=== PATIENT | female | born 1960 | race Caucasian/White ===

== ENCOUNTER 2018-12-05 08:12 | Inpatient (IN) | payer BC ==
--- NOTE | 2018-11-23 12:37 | HP ---
AMENDED REPORT NOW INCLUDES COSIGNER DESIGNATION HISTORY AND PHYSICAL: DATE OF SURGERY: 12/05/18 DATE OF OFFICE VISIT: 11/22/18 SURGEON: Vonda Hayes MD.* (DICTATED BY HIRAL GRIFFITH) PROCEDURE: Left total hip arthroplasty. CHIEF COMPLAINT: Left hip pain. HISTORY OF PRESENT ILLNESS: Ms. Brice is a 58-year-old female with continued complaints of left hip pain. She has failed conservative treatment and elected to proceed with a left total hip arthroplasty. PAST MEDICAL HISTORY: Osteoporosis. PAST SURGICAL HISTORY: Hysterectomy and right carpal tunnel release. CURRENT MEDICATIONS: 1. Calcium. 2. Vitamin D. 3. Intrarosa. 4. Alendronate sodium weekly. 5. Ibuprofen as needed. ALLERGIES: No known drug allergies. FAMILY HISTORY: Seizures. SOCIAL HISTORY: She is a 58-year-old female. She lives with her . She does not smoke, use drugs, or alcohol. REVIEW OF SYSTEMS: A complete 14-point review of systems was reviewed with the patient, was all negative and noncontributory. She denies history of DVT, PE, hepatitis, HIV, or anesthesia problems. PHYSICAL EXAMINATION GENERAL: She is well developed, well nourished, in no acute distress. VITAL SIGNS: She stands 5 feet 4 inches tall, weighs 111 pounds. Her blood pressure is 120/76, her heart rate is 70. HEENT: Normocephalic, atraumatic. NECK: Supple. No palpable lymph nodes. PULMONARY: The lungs are clear to auscultation bilaterally. CARDIO: Regular rate and rhythm. Strong S1, S2. ABDOMEN: Soft, nontender, nondistended. NEUROLOGICAL: She is alert and oriented x3. MUSCULOSKELETAL: Left lower extremity, the skin is intact. There are no open wounds or abrasions. She walks with an antalgic-type gait favoring the left hip. She has decreased internal and external rotation of the left hip. She has 2+ dorsalis pedis pulse. Her lower extremity muscle groups strength is intact at 5/5 and she has intact sensation. ASSESSMENT AND PLAN: Ms. Brice is a 58-year-old female with continued complaints of left hip pain secondary to endstage osteoarthritis. She has failed conservative treatment, she has elected to proceed with a left total hip arthroplasty with Dr. Hayes. The surgery is scheduled for 12/05/18. Dr. Hayes discussed the risks and benefits of the surgery at today's visit and all of her questions were answered. She will follow up with Dr. Hayes 2 weeks after the surgery. HIRAL GRIFFITH [id number]/[facility] #: [id number] JEANNA
[~2018-12-05 08:12] MED LIST: Buffered Lidocaine 1% SYRIN* 1 ML/SYRINGE INTRADERM ONE; Famotidine IV* 10 MG/ML 2 ML (20 mg) IV ONE; Lactated Ringers 1000 ML Bag* 1,000 ML IV SCH
--- OUTSIDE RECORDS SUMMARY | 2018-12-05 08:14 | XMS REPORT | Continuity of Care Document ---
:1960 External Reference #:[id number] Author Name Noemy Marinelli Care Team Providers Name Role Phone Uvaldo Cooper MD Primary Care Physician Unavailable Payers Date Identification Numbers Payment Provider Subscriber Policy Number: [id number] [place] Soraya Brice PayID: [id number] [address] [address] [place] [address] Advance Directives Description No Information Available Problems Date Description Provider Status Onset: 09/18/2018 Localized, primary osteoarthritis of the Vonda Yaw Hayes Active pelvic region and thigh Family History Date Family Member(s) Observation Comments General No Current Problems Social History Type Date Description Comments Sex Unknown Lives With Spouse ETOH Use Denies alcohol use Tobacco Use Start: Unknown Patient has never smoked Smoking Status Reviewed: 11/22/18 Patient has never smoked Exercise Type/Frequency Exercises regularly Allergies, Adverse Reactions, Alerts Description No Known Drug Allergies Medications Medication Date Status Form Strength Qnty SIG Indications Ordering Provider Calcium 600 Active Unknown 00 Vitamin D Active Tablets 2000Unit 1 by Unknown 00 mouth every day Intrarosa Active Insert 6.5mg Unknown 00 Alendronate Active Unknown Sodium 00 Ibuprofen Active Unknown 00 Immunizations Description No Information Available Vital Signs Date Vital Result Comment 11/22/2018 10:33am Height 64.5 inches 5'4.50" Weight 111.00 lb Heart Rate 70 /min BP Systolic 120 mmHg BP Diastolic 76 mmHg Respiratory Rate 12 /min Body Temperature 98.2 F Pain Level 1 BMI (Body Mass Index) 18.8 kg/m2 09/18/2018 10:51am Height 64.5 inches 5'4.50" Weight 115.00 lb Heart Rate 60 /min BP Systolic 116 mmHg BP Diastolic 80 mmHg BMI (Body Mass Index) 19.4 kg/m2 Results Description No Information Available Procedures Description No Information Available Encounters Type Date Location Provider Dx Diagnosis Office Visit 09/18/2018 [facility] Hayes M25.552 [facility]12 Unilateral primary osteoarthritis, left hip Plan of Treatment Future Appointment(s):12/18/2018 1:15 pm - Vonda Hayes M.D. at [facility].12/05/2018 10:30 am - Keenan Benjamin PA-C at [facility].12/05/2018 10:30 am - HIRAL Kang at [facility].12/05/2018 10:30 am - Vonda Hayes M.D. at [facility]11/22/2018 - Vonda Hayes M.D.M25.552 Pain in left hipFollow up:Follow up: 2 weeks after ibdvotwU34.12 Unilateral primary osteoarthritis, left hip
--- OUTSIDE RECORDS SUMMARY | 2018-12-05 08:14 | XMS REPORT | Continuity of Care Document ---
:1960 External Reference #:[id number] Author Name Uvaldo Cooper M.D. 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 Payers Type Date Identification Numbers Payment Provider Subscriber Effective: Policy Number: [id number] [employer] Myrna Brice 2018 PayID: [id number] [address] [address] [place] [address] Expires: 2012 Policy Number: [id number] BC/BS [place] Myrna Posey Brice Group Number: [id number] [place] [address] Effective: 2012 Policy Number: BCBS [employer] Myrna Posey Brice [id number] Expires: 2018 PayID: [id number] [address] [address] [place] [address] Advance Directives Description No Information Available Problems Date Description Provider Status Onset: 02/06/2015 Atopic dermatitis Uvaldo Cooper M.D. Active Onset: 02/06/2015 Menopausal and postmenopausal Uvaldo Cooper M.D. Active disorders Family History Description No Information Available Social History Type Date Description Comments Sex Unknown Tobacco Use Start: Unknown Patient has never smoked Smoking Status Reviewed: 10/20/17 Patient has never smoked Allergies, Adverse Reactions, Alerts Date Description Reaction Status Severity Comments 06/28/2012 NKDA Active 02/06/2015 Environmental Active Medications Medication Date Status Form Strength Qnty SIG Indications Ordering Provider Fosamax Plus Active Tablets 70-5600mg-U 12tabs 1 tab by M81.0 Germán Cooper 019 nit mouth Uvaldo Steele, every week M.DAjit Calcium + D3 Active Tablets 600-800mg-U 90tabs 1 by mouth E55.9 Kenneth, 019 nit every day Uvaldo Steele M.D. Splint Wrist Active Misc 2units use as G56.01 Kenneth, Brace/Left-Ri 016 directed Uvaldo Steele, ght/Reversibl Yaw e M79.642 Ibuprofen 03/02/2016 Active Tablets 800mg 90tabs 1 by M79.642 Kenneth, mouth Uvaldo Steele, three M.D. times a day as needed Benzonatate 01/10/2017 - Hx Capsules 200mg 30caps tab one R05 Kenneth, 01/21/2017 by mouth Uvaldo Steele, three M.D. times a day Ciprofloxacin 01/10/2017 - Hx Tablets 500mg 20tabs tab one J20.9 Kenneth, HCL 01/21/2017 by mouth Uvaldo Steele, twice a M.D. day No Active 02/06/2015 - Hx Unknown Medications 02/06/2015 Amoxicillin 02/06/2015 - Hx Tablets 500mg 30tabs 1 by 461.8 Kenneth, 02/16/2015 mouth Uvaldo Steele, three M.D. times a day 466.0 382.9 Nexium 06/13/2012 - Hx Capsules DR 40mg 14caps 1 by mouth 789.01 Uvaldo Cooper 02/06/2015 every day Yaw Steele Immunizations Description No Information Available Vital Signs Date Vital Result Comment 11/16/2018 10:41am BP Systolic 118 mmHg BP Diastolic 68 mmHg Height 65 inches 5'5" Weight 112.00 lb BMI (Body Mass Index) 18.6 kg/m2 Heart Rate 66 /min Respiratory Rate 16 /min 10/20/2017 10:17am BP Systolic 110 mmHg BP Diastolic 60 mmHg Height 65 inches 5'5" Weight 118.00 lb BMI (Body Mass Index) 19.6 kg/m2 Heart Rate 70 /min Respiratory Rate 18 /min 01/10/2017 4:30pm BP Systolic 130 mmHg BP Diastolic 72 mmHg Height 65 inches 5'5" Weight 116.00 lb BMI (Body Mass Index) 19.3 kg/m2 Heart Rate 55 /min Body Temperature 97.0 F Respiratory Rate 18 /min 03/30/2016 10:55am BP Systolic 118 mmHg BP Diastolic 76 mmHg Height 65 inches 5'5" Weight 116.00 lb BMI (Body Mass Index) 19.3 kg/m2 Heart Rate 78 /min Respiratory Rate 19 /min 03/02/2016 3:23pm BP Systolic 116 mmHg BP Diastolic 74 mmHg Height 65 inches 5'5" Weight 117.00 lb BMI (Body Mass Index) 19.5 kg/m2 Heart Rate 60 /min Respiratory Rate 16 /min 02/06/2015 9:04am BP Systolic 122 mmHg BP Diastolic 80 mmHg Height 65 inches 5'5" Weight 118.00 lb BMI (Body Mass Index) 19.6 kg/m2 Heart Rate 76 /min Body Temperature 97.4 F Respiratory Rate 16 /min 06/28/2012 3:22pm BP Systolic 105 mmHg BP Diastolic 71 mmHg Height 65 inches 5'5" Weight 122.00 lb BMI (Body Mass Index) 20.3 kg/m2 Heart Rate 67 /min Last Menstrual Period 0 Respiratory Rate 15 /min 06/13/2012 3:22pm BP Systolic 122 mmHg BP Diastolic 70 mmHg Height 65 inches 5'5" Weight 122.00 lb BMI (Body Mass Index) 20.3 kg/m2 Heart Rate 68 /min Respiratory Rate 20 /min Results Test Date Facility Test Result H/L Range Note Type And Screen 10/24/2018 [facility] Patient Blood Type B POS N 1 Antibody Screen Negative N Negative CBC 10/20/2018 [facility] White Blood Count 4.1 K/uL N 3.1-10.7 2 Red Blood Count 4.31 M/uL N 3.90-5.40 Hemoglobin 13.3 gm/dL N 11.6-15.8 Hematocrit 38.3 % N 36.0-46.1 Mean Cell Volume 88.9 fl N 80.9-99.0 Mean Corpuscular HGB 30.9 pg N 25.9-32.7 Mean Corpuscular HGB Conc 34.7 g/dL High 30.8-34.3 Platelet Count 267 K/uL N 155-360 Red Cell Distri Width %CV 12.0 % N 11.7-14.4 Mean Platelet Volume 8.6 fL Low 8.9-12.4 Ua RFX Micro & Culture II 10/20/2018 [facility] Urine Color STRAW Yellow Urine Clarity CLEAR Clear Urine Glucose - Dipstick NEGATIVE mg/dL Negative Urine Bilirubin - Dipstick NEGATIVE Negative Urine Ketone NEGATIVE mg/dL Negative Urine Specific [place] <=1.005 Low 1.010-1.030 Urine Blood NEGATIVE Negative Urine PH 7.0 N 6.5-7.5 Urine Protein - Dipstick NEGATIVE mg/dL Negative Urine Urobilinogen - Dipstick 0.2 E.U./dL N 0.2-1.0 Urine Nitrite - Dipstick NEGATIVE Negative Urine Leuk Esterase NEGATIVE Negative Source: URINE, CLEAN CAT <SEE NOTE> 3 Basic Metabolic Panel 10/20/2018 [facility] Glucose 79 mg/dL N 74-106 BUN 18 mg/dL N 7-18 Creatinine 0.7 mg/dL N 0.6-1.3 Glom Filtration Rate, Estimate >60 mL/min >60 If >60 mL/min >60 4 BUN/Creat 25.7 ratio Sodium 141 mmol/L N 136-145 Potassium 3.9 mmol/L N 3.5-5.1 Chloride 106 mmol/L N 98-107 Carbon Dioxide 29 mmol/L N 21-32 Anion Gap 6 mEq/L Low 8-16 Calcium 9.1 mg/dL N 8.5-10.1 1 CYSTOCELE,LATERAL;INCOMPLETE UTERO-VAGINAL PROLAPS 2 8:00 [facility] [place] 10/24/18 [id number] 3 URINE, CLEAN CATCH 4 Note: Persistent reduction for 3 months or more in an eGFR <60 mL/min/1.73 m2 defines CKD. Patients with eGFR values >/=60 mL/min/1.73 m2 may also have CKD if evidence of persistent proteinuria is present. The original MDRD equation for estimated GFR is not valid for patients less than 18 years of age. Additional information may be found at www.kdoqi.org. Procedures Date Code Description Status 11/16/2018 54463 EKG Completed 02/06/2015 58085 Spirometry Completed 02/06/2015 28547 Tympanometry Completed 08/10/2010 19789 Tympanometry Completed 06/30/2010 19339 Spirometry Completed 06/30/2010 15479 Tympanometry Completed Encounters Type Date Location Provider Dx Diagnosis Office Visit 11/16/2018 [facility] Uvaldo Cooper, L20.9 Atopic dermatitis, 10:30a M.D. unspecified J30.9 Allergic rhinitis, unspecified H53.30 Unspecified disorder of binocular vision G56.01 Carpal tunnel syndrome, right upper limb M19.042 Primary osteoarthritis, left hand M25.552 Pain in left hip M16.12 Unilateral primary osteoarthritis, left hip E55.9 Vitamin D deficiency, unspecified M81.0 Age-related osteoporosis w/o current pathological fracture Z00.01 Encounter for general adult medical exam w abnormal findings Z01.818 Encounter for other preprocedural examination Office Visit 10/20/2017 10:00a [place] Brandon Murillo PA R05 Cough J20.9 Acute bronchitis, unspecified M79.642 Pain in left hand L20.9 Atopic dermatitis, unspecified J30.9 Allergic rhinitis, unspecified H53.30 Unspecified disorder of binocular vision G56.01 Carpal tunnel syndrome, right upper limb M19.042 Primary osteoarthritis, left hand R07.1 Chest pain on breathing Office Visit 01/10/2017 4:30p [place] Zane Mau STAKE DRIVER R05 Cough R06.02 Shortness of breath R50.9 Fever, unspecified J20.9 Acute bronchitis, unspecified Office Visit 03/30/2016 11:00a [place] [facility] Uvaldo Cooper, M79.642 Pain in left M.D. hand L20.9 Atopic dermatitis, unspecified J30.9 Allergic rhinitis, unspecified H53.30 Unspecified disorder of binocular vision G56.01 Carpal tunnel syndrome, right upper limb M19.042 Primary osteoarthritis, left hand Office Visit 03/02/2016 3:15p [facility] Uvaldo Cooper, M79.642 Pain in left M.D. hand M71.342 Other bursal cyst, left hand L20.9 Atopic dermatitis, unspecified J30.9 Allergic rhinitis, unspecified H53.30 Unspecified disorder of binocular vision G56.01 Carpal tunnel syndrome, right upper limb Office Visit 02/06/2015 8:30a Uvaldo Stein, 461.8 Sinusitis Acute Other M.D. 466.0 Bronchitis Acute 382.9 Otitis Media Unspec 786.2 Cough 786.05 Shortness Of Breath 478.19 Other Disease Of Nasal Cavity And Sinuses 780.79 Malaise And Fatigue Other 691.8 Dermatitis Atopic & Related Conditions Other Office Visit 06/28/2012 3:00p Joyce Benites STAKE DRIVER 789.01 Pain Abdominal Office Right Upper Quadrant Office Visit 06/13/2012 3:00p Joyce Benites STAKE DRIVER 789.01 Pain Abdominal Office Right Upper Quadrant Office Visit 08/10/2010 12:15p [place] Uvaldo Cooper M.D. 382.9 Otitis Media Office Unspec 786.2 Cough 034.0 Streptococcal Sore Throat 723.1 Cervicalgia Office Visit 06/30/2010 10:15a [place] [facility] Uvaldo Cooper 382.9 Otitis Media Serena.DAjit Unspec 466.0 Bronchitis Acute 786.2 Cough 461.8 Sinusitis Acute Other Plan of Treatment 11/16/2018 - Uvaldo Cooper M.D.L20.9 Atopic dermatitis, unspecifiedComments: SKIN CARE INSTRUCTIONS LOTION OR BABY OIL 2-3 APPLICATION PER DAYUSE MOISTURIZING SOAPAVOID PROLONGED WATER EXPOSUREAVOID USING HOT WATER IN EJHNMHM37.9 Allergic rhinitis, unspecifiedComments:INCREASE PO FLUID USE ANTIHISTAMINE PRN SECOND HAND SMOKING RKIKSFLAXP12.30 Unspecified disorder of binocular visionComments:USE GLASSES/CONTACTSF/U WITH RCYNAKRUOEPMON32.01 Carpal tunnel syndrome, right upper limbComments:WRIST SPLINTEXERCISE/HEAT/ MESSAGE F/U WITH ORTHO PRNM19.042 Primary osteoarthritis, left handComments: TYLENOL OR MOTRIN PRN EXERCISE/HEAT/WZCBKMES78.552 Pain in left hipComments: EXERCISE/HEAT/MESSAGETYLENOL OR MOTRIN PRNAVOID HEAVY ODMLDWAT20.12 Unilateral primary osteoarthritis, left hipComments:EXERCISE/HEAT/MESSAGETYLENOL OR MOTRIN PRNAVOID HEAVY JCOMCDTF97.9 Vitamin D deficiency, unspecifiedNew Medication: Calcium + D3 600-800 mg-Unit - 1 by mouth every dayComments:INCREASE EXPOSURE TO SUNREVIEW OF DIETM81.0 Age-related osteoporosis without current pathological fractuNew Medication:Fosamax Plus D 70-5600 mg-Unit - 1 tab by mouth every weekComments:STRESS EXERCISESCALCIUM SUPPLEMENT VIT D SUPPLEMENTHEALTHY LIVING KFOVWTQDADYP93.01 Encounter for general adult medical examination with abnormal findingsComments:GOOD NUTRITION /EXERCISEDENTAL/ FLOSSING/ SELF CAREDROWNING/ SUN SAFETYSEAT BELT/ DRIVING SAFETYVIOLENCE PREVENTION/ GUN SAFETY "SAFE AT HOME"EDUCATION GOALS/ ACTIVITIESSOCIAL INTERACTIONFAMILY FUNCTIONINGSELF CONTROLDEPRESSION/ ANXIETYYEARLY PHYSICAL WELLNESS EVALUATION F /U WITH OB /ASSISTANT IN NURSING FOR PAP AND ODGRLMZPLT96.818 Encounter for other preprocedural examinationComments:MEDICALLY CLEAREDF/U WITH ORTHO
[2018-12-05] MEDS ORDERED: Famotidine IV* 10 MG/ML 2 ML (20 mg) ONE (08:42)
[2018-12-05] MEDS ORDERED: ceFAZolin 2 GM PREMIX in ORs 2 GM/50 ML BAG IVPB ONE (08:42)
[2018-12-05] MEDS ORDERED: ROPIVACAINE 5 MG/ML 30 ML BTL (0.5%) ONE (09:55)
[2018-12-05] MEDS ORDERED: Midazolam* 1 MG/ML 5 ML VIAL (5 MG) ONE (10:10)
[2018-12-05] MEDS ORDERED: fentaNYL* 50 MCG/ML 2 ML VIAL (100 MCG VIAL) ONE (10:10)
[2018-12-05] MEDS ORDERED: KETAMINE HCL* 50 MG/ML 10 ML VIAL ONE (12:09)
[2018-12-05] MEDS ORDERED: DiMENhydriNATE IV* 50 MG/ML VIAL ONE (12:16)
[2018-12-05] MEDS ORDERED: Dexamethasone IV* 4 MG/ML 1 ML (4 MG) ONE (12:16)
[2018-12-05] MEDS ORDERED: Ketorolac INJ* 30 MG/ML 1 ML VIAL ONE (12:16)
[2018-12-05] MEDS ORDERED: Succinylcholine* 20 MG/ML 10 ML VIAL ONE (12:16)
[2018-12-05] MEDS ORDERED: Ondansetron INJ* 2 MG/ML VIAL ONE (12:16)
[2018-12-05] MEDS ORDERED: EPHEDrine (Pressors)* 50 MG/ML VIAL ONE (12:16)
[2018-12-05] MEDS ORDERED: Propofol* 10 MG/ML 20 ML BTL ONE (12:16)
[2018-12-05] MEDS ORDERED: Lidocaine 2% PF * 5 ML VIAL ONE (12:17)
[2018-12-05] MEDS ORDERED: Phenylephrine IV* 40 MCG/ML 10 ML SYRINGE ONE (12:17)
[2018-12-05] MEDS ORDERED: Acetaminophen IV 1GM/100ML * 1,000 MG/100 ML VIAL IVPB ONE (13:00)
[2018-12-05] MEDS ORDERED: DiMENhydriNATE IV* 50 MG/ML VIAL IV PUSH PRN (13:00)
[2018-12-05] MEDS ORDERED: oxyCODONE TAB* 5 MG TAB PO PRN ×2 (13:00→14:05)
[2018-12-05] MEDS ORDERED: Naloxone* 0.4 MG/ML 1 ML VIAL IV PRN (13:00)
[2018-12-05] MEDS ORDERED: Gabapentin CAP(*) 100 MG PO ONE (13:02)
[2018-12-05] MEDS ORDERED: HYDROmorphone INJ1* 1 MG/ML SYRINGE ONE ×2 (13:18→14:25)
[2018-12-05] MEDS ORDERED: Ondansetron TAB* 4 MG PO PRN (14:05)
[2018-12-05] MEDS ORDERED: traMADol TAB* 50 MG PO PRN (14:05)
[2018-12-05] MEDS ORDERED: Bisacodyl SUPP* 10 MG SUPP PR PRN (14:05)
[2018-12-05] MEDS ORDERED: Polyethylene Glycol 3350* 17 GM PACKET PO PRN (14:05)
[2018-12-05] MEDS ORDERED: Cyclobenzaprine TAB* 10 MG PO PRN (14:05)
[2018-12-05] MEDS ORDERED: Magnesium Hydroxide LIQ* 30 ML UDC PO PRN (14:05)
[2018-12-05] MEDS ORDERED: Ondansetron INJ* 2 MG/ML VIAL IV PRN (14:05)
[2018-12-05] MEDS ORDERED: Morphine VIAL* 4 MG/ML VIAL (1 ml vial) IV PRN (14:05)
[2018-12-05] MEDS ORDERED: diPHENhydraMINE IV* 50 MG/ML 1 ml VIAL (BENADRYL) IV PRN (14:05)
[2018-12-05] MEDS ORDERED: Acetaminophen IV 1GM/100ML * 100 ML ONE (14:08)
[2018-12-05] MEDS ORDERED: Gabapentin CAP(*) 100 MG ONE (14:08)
[2018-12-05] MEDS ORDERED: oxyCODONE TAB* 5 MG TAB ONE (14:25)
[2018-12-05] MEDS: HYDROmorphone INJ1* 1 MG/ML SYRINGE IV PRN ×2 (14:29→14:54)
--- NOTE | 2018-12-05 14:44 | PN ---
Progress Note - Progress Note Date of Service: 12/05/18 Note: resting comfortably in recovery. no complaints of pain. able to dorsi flex/ plantar flex, 2+ DP pulse, intact sensation, dressing c/d/i and abduction pillow in place.
[2018-12-05] MEDS: Lactated Ringers 1000 ML Bag* 1,000 ML IV SCH (16:55)
[2018-12-05] MEDS: oxyCODONE/Acetamin 5/325 MG* TAB PO PRN (18:30)
[2018-12-05] MEDS: ceFAZolin 1 GM ADVAN(*) 1 GM in NS 0.9% 50 ML* 50 ML IVPB SCH (20:18)
[2018-12-05] MEDS: Docusate CAP* 100 MG PO SCH (21:26)
[2018-12-05] MEDS: Magnesium Hydroxide LIQ* 30 ML UDC PO SCH (21:26)
[2018-12-05] MEDS: Acetaminophen TAB* 325 MG PO SCH (21:26)
[2018-12-06] MEDS: oxyCODONE/Acetamin 5/325 MG* TAB PO PRN ×6 (03:14→23:59)
[2018-12-06] MEDS: Lactated Ringers 1000 ML Bag* 1,000 ML IV SCH ×2 (03:14→21:31)
[2018-12-06] MEDS: ceFAZolin 1 GM ADVAN(*) 1 GM in NS 0.9% 50 ML* 50 ML IVPB SCH ×2 (03:15→11:33)
[2018-12-06] MEDS: Acetaminophen TAB* 325 MG PO SCH ×3 (05:33→22:10)
[2018-12-06 06:50] LABS: Hematocrit 25 % (35-47); Hemoglobin 8.6 g/dl (12.0-16.0); Mean Platelet Volume 6.7 fL (7.4-10.4); Platelet Count 186 10^3/ul (150-450)
[2018-12-06 07:11] LABS: BUN/Creatinine Ratio 18.9 (8-20); Calcium 8.4 mg/dL (8.6-10.3); EGFR African American 142.4 (>60); EGFR Non-African American 117.7 (>60); Potassium 3.8 mmol/L (3.5-5.0)
[2018-12-06] MEDS: Apixaban* 2.5 MG TAB PO SCH ×2 (07:38→19:50)
[2018-12-06] MEDS: Docusate CAP* 100 MG PO SCH ×2 (07:38→19:50)
[2018-12-06] MEDS: Magnesium Hydroxide LIQ* 30 ML UDC PO SCH ×2 (07:39→22:09)
[2018-12-06] MEDS ORDERED: Lactated Ringers 1000 ML Bag* 1,000 ML IV SCH (09:00)
--- NOTE | 2018-12-06 10:03 | OP ---
DATE OF OPERATION: 12/05/18 - ROOM #342 DATE OF : 56 ATTENDING SURGEON: Vonda Hayes MD MANAGER COSMETIC: HIRAL [place]. Ms. Ernst did help throughout the procedure with preparation of the leg, wound retraction, manipulation of the hip and wound closure. ANESTHESIOLOGIST: Dr. Gottlieb. ANESTHESIA: General. PRE-OP DIAGNOSIS: Severe end-stage degenerative osteoarthritis of the left hip joint. POST-OP DIAGNOSIS: Severe end-stage degenerative osteoarthritis of the left hip joint. OPERATIVE PROCEDURE: Left total hip arthroplasty. ESTIMATED BLOOD LOSS: 150 cc. COMPLICATIONS: None. SPECIMEN: Femoral head and acetabular reaming sent to Pathology. HARDWARE USED: This is total hip arthroplasty hardware from [employer]. For the cup, a Tritanium cluster hole shell 50D, two 16 mm screws. For the liner, a Trident X3 10-degree polyethylene insert 32D. For the stem, an Accolade II size 5 with a 132- degree neck. For the head, a Biolox delta ceramic V40 femoral head 32 -4. BRIEF HISTORY/INDICATION: Ms. Brice is a 58-year-old female with years of increasingly severe left hip pain. Radiograph showed severe arthritis. She failed conservative treatment and elected to undergo left total hip arthroplasty due to continued pain and decreased quality of life. Informed consent was obtained from the patient. She understood the risks of surgery included, but were not limited to bleeding, infection, damage to nearby structures, continued pain, need for further surgery, intraoperative fracture, nerve palsy, hardware failure or loosening, dislocation, leg length discrepancy , stroke, heart attack, blood clot, and . She wished to proceed. INTRAOPERATIVE FINDINGS: Intraoperatively, the patient was noted to have severe arthritis with complete loss of cartilage along the femoral head and acetabulum. The acetabulum was extremely dysplastic and shallow with minimal anterior wall. DESCRIPTION OF PROCEDURE: Ms. Brice was identified in the preanesthesia unit. Her left lower extremity was marked as the correct operative site. Informed consent was signed and placed in the chart. The patient was taken to the operating room and placed under general anesthesia. A Deshpande catheter was placed. The patient was placed in the right lateral decubitus position on the pegboard. All bony prominences were well padded. Left lower extremity was prepped and draped in the usual sterile fashion. Preop time-out was made to correctly identify the patient, side, and site. Appropriate perioperative antibiotics were given within 1 hour of incision. A standard posterior hip incision was made with a 10-blade and carried down to the lateral fascial layer. Lateral fascial layer was incised in line with the skin incision. Charnley retractor was placed. The piriformis and conjoint tendons were identified and tagged with #5 Ethibond. Next, electrocautery was used to make a standard posterolateral capsular flap and this was also tagged with #5 Ethibond. The hip was carefully dislocated. Lesser troch to center of the femoral head measured 53 mm. Oscillating saw was used to make the femoral neck cut and the femoral head was removed. The femur was carefully retracted anteriorly. After appropriate placement of retractors, the acetabulum was well visualized. Long handled knife was used to sharply remove any remaining labrum from the acetabular rim. The acetabulum was noted to be extremely shallow with complete loss of cartilage. Acetabulum was sequentially reamed up to a size 49. A 49 reamer obtained a good hemisphere with bleeding subchondral bone bed. A 49 trial had good fit. Final implant chosen was a Tritanium 50D cluster hole shell. This was impacted into the acetabulum. The cup was stable with appropriate anteversion and abduction angle. Two 16 mm screws were placed in the superior posterior quadrant for extra stability. Liner chosen was a Trident X3 10-degree polyethylene insert 32D. This was impacted into the acetabulum without difficulty. Stability of the insert was checked and rechecked and noted to be stable. Next, attention was turned to preparation of the femoral canal. A canal finder was used to enter the proximal femur. The femoral canal was sequentially broached up to a size 5. Size 5 broach had good fit and stability with appropriate anteversion. A 132 neck trial with a 32 +0 head trial was chosen and this measured 58 mm. Therefore, a 32 -4 head was chosen. This measured lesser troch to center of the femoral head at 54 mm. The hip was reduced and taken through range of motion. The hip was stable in all positions. There was good soft tissue tension and appropriate leg lengths. The hip was carefully dislocated. All trials were removed. Final implant chosen was an Accolade II size 5 with a 132-degree neck. This was impacted into the femoral canal without difficulty. The stem was stable with appropriate anteversion. A Biolox delta ceramic V40 femoral head 32 -4 was chosen as the proper head. Final lesser troch to center of the femoral head measurement was 53 mm. The hip was reduced and taken through range of motion. The hip was stable in all positions. There was good soft tissue tension and appropriate leg lengths. The wound was copiously irrigated with sterile saline. Previously tagged tendons and capsules were reapproximated to the posterolateral femur through 2 trochanteric drill holes. Lateral fascial layer was closed using interrupted #1 Vicryls. The rest of the incision was closed in a layered using 0 and 2-0 Vicryls. Skin was closed using 3-0 Monocryl and Dermabond. Sterile Adaptic, 4x4s, and paper tape were used to cover the incision. The patient's anesthesia was reversed without difficulty. She was taken to the PACU in stable condition. Intended weightbearing will be weightbearing as tolerated. Intended DVT prophylaxis will be Coumadin with Lovenox bridge. [id number]/[facility] #: [id number] JEANNA
--- NOTE | 2018-12-06 11:50 | PN ---
Progress Note - Progress Note Date of Service: 12/06/18 SOAP: Subjective: []Pt seen at bedside. She is feeling well with her only complaint of slight dizziness after PT which resolved with rest. Denies CP, SOB, dizziness or nausea. Left hip pain is tolerable and she anticipates DC to home today. Objective: []General: Well appearing, NAD LLE: Left hip dressing CDI. Thigh is soft, DF/PF intact, DP2+, sensation intact to light touch distally Calves supple and nontender without erythema, edema or palpable cords Assessment: []POD 1 sp left total hip replacement Dr Hayes 12/05 Plan: []WBAT PT/OT Posterior hip precautions eliquis 2.5 mg PO bid x 30 days Soft BP- bolus 1000 ml LR Anticipate DC home this afternoon pending goals met with PT and no dizziness Vital Signs Temp 98.5 F 12/06/18 11:27 Pulse 68 12/06/18 11:27 Resp 16 12/06/18 11:31 BP 102/54 12/06/18 11:27 Pulse Ox 100 12/06/18 11:27 Intake & Output 12/05/18 12/06/18 12/06/18 18:59 06:59 18:59 Intake Total 1100 1987 1115 Output Total 350 1600 600 Balance 750 387 515 Weight 113 lb Intake: IV Fluids 1100 979 540 LR 1100 979 540 IVPB 58 ABX - CEFAZOLIN 58 Oral 950 575 Output: Urine 600 Deshpande 350 1600 Laboratory Last Values Hgb 8.6 g/dl (12.0-16.0) L 12/06/18 06:27 Hct 25 % (35-47) L 12/06/18 06:27 Plt Count 186 10^3/ul (150-450) 12/06/18 06:27 MPV 6.7 fL (7.4-10.4) L 12/06/18 06:27 Sodium 137 mmol/L (135-145) 12/06/18 06:27 Potassium 3.8 mmol/L (3.5-5.0) 12/06/18 06:27 Chloride 104 mmol/L (101-111) 12/06/18 06:27 Carbon Dioxide 29 mmol/L (22-32) 12/06/18 06:27 Anion Gap 4 mmol/L (2-11) 12/06/18 06:27 BUN 10 mg/dL (6-24) 12/06/18 06:27 Creatinine 0.53 mg/dL (0.51-0.95) 12/06/18 06:27 Est GFR ( Amer) 142.4 (>60) 12/06/18 06:27 Est GFR (Non-Af Amer) 117.7 (>60) 12/06/18 06:27 BUN/Creatinine Ratio 18.9 (8-20) 12/06/18 06:27 Glucose 102 mg/dL (70-100) H 12/06/18 06:27 Calcium 8.4 mg/dL (8.6-10.3) L 12/06/18 06:27
[2018-12-07] MEDS: oxyCODONE/Acetamin 5/325 MG* TAB PO PRN ×2 (06:09→10:10)
[2018-12-07] MEDS: Acetaminophen TAB* 325 MG PO SCH ×2 (06:16→13:23)
[2018-12-07 07:09] LABS: Hematocrit 25 % (35-47); Hemoglobin 8.4 g/dl (12.0-16.0); Mean Platelet Volume 6.8 fL (7.4-10.4); Platelet Count 175 10^3/ul (150-450)
[2018-12-07 08:17] VITALS: BP 103/58
[2018-12-07] MEDS: Magnesium Hydroxide LIQ* 30 ML UDC PO SCH (09:02)
[2018-12-07] MEDS: Apixaban* 2.5 MG TAB PO SCH (09:29)
[2018-12-07] MEDS: Docusate CAP* 100 MG PO SCH (09:29)
--- NOTE | 2018-12-07 09:59 | PN ---
Progress Note - Progress Note Date of Service: 12/07/18 SOAP: Subjective: []Pt seen at bedside. She has had a bowel movement and denies abdominal discomfort or the sense of constipation. Denies CP, SOB, dizziness or nausea. Objective: []General: Well appearing, NAD LLE: Left hip dressing changed, incision CDI. Thigh is soft, DF/PF intact, DP2+ , sensation intact to light touch distally Calves supple and nontender without erythema, edema or palpable cords Assessment: []POD 2 sp left total hip replacement Dr Hayes 12/05 Plan: []WBAT PT/OT Posterior hip precautions eliquis 2.5 mg PO bid x 30 days DC to home today Vital Signs Temp 98.9 F 12/07/18 08:02 Pulse 81 12/07/18 08:02 Resp 18 12/07/18 09:01 BP 103/58 12/07/18 08:02 Pulse Ox 98 12/07/18 08:02 Intake & Output 12/06/18 12/07/18 12/07/18 18:59 06:59 18:59 Intake Total 1410 1176 Output Total 0 3150 500 Balance -640 -1973 Intake: IV Fluids 540 956 LR 540 956 IVPB 55 ABX - CEFAZOLIN 55 Oral 815 220 Output: Urine 2049 3150 500 Other: Estimated Void Small # Bowel Movements 1 1 Estimated Stool Amount Small Small # Voids 1 Laboratory Last Values Hgb 8.4 g/dl (12.0-16.0) L 12/07/18 06:34 Hct 25 % (35-47) L 12/07/18 06:34 Plt Count 175 10^3/ul (150-450) 12/07/18 06:34 MPV 6.8 fL (7.4-10.4) L 12/07/18 06:34 Sodium 137 mmol/L (135-145) 12/06/18 06:27 Potassium 3.8 mmol/L (3.5-5.0) 12/06/18 06:27 Chloride 104 mmol/L (101-111) 12/06/18 06:27 Carbon Dioxide 29 mmol/L (22-32) 12/06/18 06:27 Anion Gap 4 mmol/L (2-11) 12/06/18 06:27 BUN 10 mg/dL (6-24) 12/06/18 06:27 Creatinine 0.53 mg/dL (0.51-0.95) 12/06/18 06:27 Est GFR ( Amer) 142.4 (>60) 12/06/18 06:27 Est GFR (Non-Af Amer) 117.7 (>60) 12/06/18 06:27 BUN/Creatinine Ratio 18.9 (8-20) 12/06/18 06:27 Glucose 102 mg/dL (70-100) H 12/06/18 06:27 Calcium 8.4 mg/dL (8.6-10.3) L 12/06/18 06:27
--- NOTE | 2018-12-07 10:59 | DS ---
AMENDED REPORT NOW INCLUDES DATE OF DISCHARGE AND COSIGNER DESIGNATION DISCHARGE SUMMARY: DATE OF ADMISSION: 12/05/18 DATE OF DISCHARGE: 12/07/18 PROVIDER: Dr. Vonda Hayes. SURGEON: Dr. Vonda Hayes.* (DICTATED BY HIRAL JAIME) PRE-OP DIAGNOSIS: Osteoarthritis of the left hip joint. OPERATIVE PROCEDURE: Left total hip arthroplasty. HISTORY: Ms. Brice is a 58-year-old female with years of increasingly severe left hip pain. Radiographs showed severe arthritis. She failed conservative treatment and elected to undergo a left total hip arthroplasty. HOSPITAL COURSE: The patient was admitted to [facility] on . She underwent a left total hip arthroplasty without complication. She recovered briefly in the PACU and was transferred to the short-stay surgical unit in stable condition. On postop day 1, she was well appearing, in no acute distress. Left hip dressing is clean, dry, and intact. Dorsiflexion and plantarflexion intact. DP pulse 2+. Sensation intact to light touch distally. The patient had soft blood pressure, for which she was given a 1000 mL bolus of LR. Due to sensation of constipation and history of difficulty with constipation, the patient stayed overnight here and received several bowel medications, which did produce a bowel movement. On postop day 2, sensation of constipation was resolved. She had no abdominal discomfort. Left hip dressing was changed. Incision was clean, dry, and intact. She was neurovascularly intact distally. Vital Signs: Temperature 98.9, pulse 81, respiratory rate 18 , blood pressure 103/68, pulse ox 98. Hemoglobin 8.4, hematocrit 25. Sodium 137, potassium 3.8. DISCHARGE MEDICATIONS: 1. Docusate 100 mg p.o. b.i.d. for constipation for 30 days. 2. Vitamin D 2000 units p.o. q.a.m. 3. Fosamax 70 mg weekly. 4. Calcium 600 mg p.o. q.a.m. 5. Intrarosa 6.5 mg vaginal, see instructions. 6. Acetaminophen 975 mg p.o. q.8 hours p.r.n. 7. Eliquis 2.5 mg p.o. b.i.d. for 30 days. 8. Percocet 5/325 one to two tabs every 4 to 6 hours as needed for pain. DISCHARGE INSTRUCTIONS: The patient is weightbearing as tolerated. Continue posterior hip precautions. Continue physical therapy. The patient will have home PT and visiting nurse for wound checks. DVT prophylaxis, Eliquis 2.5 mg twice daily for 1 month. Pain control with Percocet 5/325 one to two tabs by mouth every 4 to 6 hours as needed for pain, max of 10 tablets per day. Follow up with Dr. Hayes in 10 to 14 days. The patient is to ensure she is eating and drinking well and changes position slowly due to low blood pressures while inhouse. The patient is asymptomatic with systolic blood pressures in the low 100s at discharge. She will follow up with Dr. Hayes in 10 to 14 days. She is discharged home. HIRAL SLOAN [id number]/[facility] #: [id number] MTDD
== END 2018-12-07 13:26 | disposition home health service (06) | DRG 301 ==
LOC: AA 08:12 → SSU 16:12
PROVIDERS: ADMIT Orthopaedic Surgery Adult Reconstructive Orthopaedic Surgery; ATTEND Orthopaedic Surgery Adult Reconstructive Orthopaedic Surgery
PROC: 0SRB04Z Replacement of Left Hip Joint with Ceramic on Polyethylene Synthetic Substitute, Open Approach (ICD-10-PCS; principal; 2018-12-05 11:00)
DX: M16.12 Unilateral primary osteoarthritis, left hip (principal); K59.00 Constipation, unspecified; K21.9 Gastro-esophageal reflux disease without esophagitis; L20.9 Atopic dermatitis, unspecified; J30.2 Other seasonal allergic rhinitis; E55.9 Vitamin D deficiency, unspecified; J30.9 Allergic rhinitis, unspecified; H53.30 Unspecified disorder of binocular vision; M19.042 Primary osteoarthritis, left hand; M81.0 Age-related osteoporosis without current pathological fracture; R42 Dizziness and giddiness; Q65.89 Other specified congenital deformities of hip; Z90.710 Acquired absence of both cervix and uterus; Z82.0 Family history of epilepsy and other diseases of the nervous system
CPT/HCPCS: 36415; 72170; 80048; 85014; 85018; 85049; A9270-GY; C1713; C1776; G8978-GP-CJ; G8979-GP-CI; J0330; J0690; J1100; J1170; J1240; J1885; J2250; J2405; J2704; J2795; J3010